=== PATIENT | male | born 1965 | race Caucasian/White ===

== ENCOUNTER → 2020-04-16 11:23 | Outpatient (BNVA) | payer MEDICAID, SELFPAY | PROVIDERS: Visit Provider Internal Medicine | DX: M19.90 Unspecified osteoarthritis, unspecified site (principal); Z79.899 Other long term (current) drug therapy; Z11.59 Encounter for screening for other viral diseases; Z11.1 Encounter for screening for respiratory tuberculosis | CPT/HCPCS: 81003; 82164; 82310; 82550; 82652; 82728; 83540; 83735; 83970; 84100; 86480; 86704; 86803; 86812; 87340; 99203; 99204 ==

== ENCOUNTER 2020-04-28 09:48 | Outpatient (CLI) | payer MEDICAID, SELFPAY ==
--- NOTE | 2020-04-28 10:01 | XR_ITS ---
WS: [id number] LATERAL CERVICAL SPINE: 3 view. Lateral radiographs are performed in upright neutral, flexion and extension to the patient's toleranc e. HISTORY: neck pain COMPARISON: None available. Normal cervical alignment. Disc spaces and vertebral body heights are normal. No instability with fle xion and extension. XR/XR cervical spine fl/ex [id number] IMPRESSION: No cervical spine instability.
--- NOTE | 2020-04-28 10:01 | XR_ITS ---
WS: [id number] CHEST 2 VIEWS HISTORY: Osteoarthritis. Neck pain. COMPARISON: None available. Lungs: Mild hyperexpansion. No mass or pneumonia. No nodules. No pleural effusion. Cardiac size: Normal. Mediastinum/Aorta: Normal mediastinum. Bones: Mild narrowing of the AC joints. XR/XR chest 2V* [id number] IMPRESSION: Mild emphysema. No acute cardiopulmonary disease.
== END 2020-04-28 09:49 | disposition home or self-care (01) ==
LOC: RADWPI 09:55
PROVIDERS: Family Provider Family Medicine; PCP Family Medicine; Visit Provider Internal Medicine
DX: M19.90 Unspecified osteoarthritis, unspecified site (principal); M54.2 Cervicalgia; J43.9 Emphysema, unspecified
CPT/HCPCS: 71046; 72040

== ENCOUNTER → 2020-05-20 13:10 | Outpatient (BNVA) | payer MEDICAID, SELFPAY | PROVIDERS: Family Provider Family Medicine; PCP Family Medicine; Visit Provider Internal Medicine | DX: M06.9 Rheumatoid arthritis, unspecified (principal); E46 Unspecified protein-calorie malnutrition; E61.1 Iron deficiency; R21 Rash and other nonspecific skin eruption; Z79.52 Long term (current) use of systemic steroids | CPT/HCPCS: 99213; 99214 ==

== ENCOUNTER → 2025-03-23 13:22 | Outpatient (BNVA) | payer OTHER, SELFPAY | PROVIDERS: Family Provider Internal Medicine; PCP Internal Medicine; Visit Provider Psychiatry & Neurology Psychiatry | DX: E46 Unspecified protein-calorie malnutrition (principal); E61.1 Iron deficiency; Z79.899 Other long term (current) drug therapy | CPT/HCPCS: 80053; 80061; 83036; 84443; 85007; 85027 ==